=== PATIENT | female | born 1975 | race Caucasian/White ===

== ENCOUNTER → 2021-05-28 | Outpatient (CLI) | payer OTHER | LOC: MRI 10:09 | DX: M47.26 Other spondylosis with radiculopathy, lumbar region (principal); M43.16 Spondylolisthesis, lumbar region | CPT/HCPCS: 72158; A9577 ==

== ENCOUNTER → 2021-06-18 | Outpatient (CLI) | payer OTHER | LOC: KOH-I 08:30 | DX: Z01.818 Encounter for other preprocedural examination (principal); M48.061 Spinal stenosis, lumbar region without neurogenic claudication; M43.16 Spondylolisthesis, lumbar region; M51.36 Other intervertebral disc degeneration, lumbar region; M47.816 Spondylosis without myelopathy or radiculopathy, lumbar region | CPT/HCPCS: 72131 ==

== ENCOUNTER → 2021-06-26 | Outpatient (CLI) | payer OTHER ==
[2021-06-26 13:01] LABS: HEMOGLOBIN 11.3 gm/dl (12.3-15.3); RED BLOOD COUNT 4.13 M/UL (4.00-5.10); WHITE BLOOD COUNT 6.2 K/UL (4.5-11.0)
[2021-06-26 13:18] LABS: BUN/CREATININE RATIO 20 (0-10)
[2021-06-27 12:17] LABS: HBSAG SCREEN Negative (Negative); HEP A AB, IGM Negative (Negative); HEP B CORE AB, IGM Negative (Negative); HEP C VIRUS AB >11.0 (0.0-0.9)
== END ==
LOC: OPSV2 12:10 → EDSTATUS 12:30
PROVIDERS: Orthopaedic Surgery
DX: Z01.818 Encounter for other preprocedural examination (principal); M48.061 Spinal stenosis, lumbar region without neurogenic claudication; M43.16 Spondylolisthesis, lumbar region; M51.36 Other intervertebral disc degeneration, lumbar region
CPT/HCPCS: 36415; 71046; 80053; 80074; 81001; 85025; 85652; 86140; 87081; 93005

== ENCOUNTER → 2021-07-02 | Outpatient (CLI) | payer OTHER | LOC: LAB 11:18 | PROVIDERS: Orthopaedic Surgery | DX: Z86.19 Personal history of other infectious and parasitic diseases (principal) | CPT/HCPCS: 36415; 86803 ==

== ENCOUNTER → 2021-07-07 | Outpatient (CLI) | payer OTHER ==
[~2021-07-07] MED LIST: NEURONTIN800 MG PO
[2021-07-07 17:31] LABS: BUN/CREATININE RATIO 20 (0-10)
== END ==
LOC: LAB 16:07
PROVIDERS: Orthopaedic Surgery
DX: Z01.812 Encounter for preprocedural laboratory examination (principal); M48.061 Spinal stenosis, lumbar region without neurogenic claudication; M43.16 Spondylolisthesis, lumbar region
CPT/HCPCS: 36415; 80048; 86850; 86900; 86901

== ENCOUNTER 2021-07-08 05:31 | Inpatient (IN) | payer OTHER ==
[~2021-07-08] VITALS: Ht 157.5 cm; Wt 98.4 kg
[2021-07-08 16:53] LABS: HEMOGLOBIN 9.9 gm/dl (12.3-15.3); RED BLOOD COUNT 3.56 M/UL (4.00-5.10); WHITE BLOOD COUNT 16.3 K/UL (4.5-11.0)
[2021-07-08 18:47] LABS: HEMOGLOBIN 9.8 gm/dl (12.3-15.3); RED BLOOD COUNT 3.56 M/UL (4.00-5.10); WHITE BLOOD COUNT 13.9 K/UL (4.5-11.0)
[2021-07-08 19:22] LABS: BUN/CREATININE RATIO 17 (0-10)
[2021-07-09] MEDS ORDERED: NEURONTIN800 MG PO (06:02)
[2021-07-09 07:37] LABS: HEMOGLOBIN 8.3 gm/dl (12.3-15.3)
[2021-07-09 07:39] LABS: RED BLOOD COUNT 3.07 M/UL (4.00-5.10)
[2021-07-09 08:01] LABS: BUN/CREATININE RATIO 14 (0-10)
[2021-07-09 14:47] LABS: HEMOGLOBIN 8.7 gm/dl (12.3-15.3); RED BLOOD COUNT 3.12 M/UL (4.00-5.10); WHITE BLOOD COUNT 11.2 K/UL (4.5-11.0)
[2021-07-10 04:26] LABS: HEMOGLOBIN 8.8 gm/dl (12.3-15.3); RED BLOOD COUNT 3.23 M/UL (4.00-5.10); WHITE BLOOD COUNT 9.9 K/UL (4.5-11.0)
[2021-07-10 04:47] LABS: BUN/CREATININE RATIO 13 (0-10)
[2021-07-10 10:12] LABS: HBSAG SCREEN Negative (Negative); HEP A AB, IGM Negative (Negative); HEP B CORE AB, IGM Negative (Negative); HEP C VIRUS AB >11.0 (0.0-0.9)
[2021-07-11 03:23] LABS: RED BLOOD COUNT 3.27 M/UL (4.00-5.10); WHITE BLOOD COUNT 9.2 K/UL (4.5-11.0)
[2021-07-11 03:47] LABS: BUN/CREATININE RATIO 20 (0-10)
[2021-07-12 05:47] LABS: HEMOGLOBIN 8.7 gm/dl (12.3-15.3); RED BLOOD COUNT 3.14 M/UL (4.00-5.10); WHITE BLOOD COUNT 7.9 K/UL (4.5-11.0)
[2021-07-12 06:41] LABS: BUN/CREATININE RATIO 25 (0-10)
--- NOTE | 2021-07-12 15:34 | NUR ---
Patient arrived on the floor at approximately 1430. Vitals were stable, and the patient only complained of moderate pain in the lower extremities. Call light was given and the bed placed in the lowest position.
[2021-07-13 05:35] LABS: RED BLOOD COUNT 3.3 M/UL (4.00-5.10); WHITE BLOOD COUNT 9.2 K/UL (4.5-11.0)
[2021-07-13 06:50] LABS: BUN/CREATININE RATIO 25 (0-10)
[2021-07-14 05:53] LABS: HEMOGLOBIN 9.8 gm/dl (12.3-15.3); RED BLOOD COUNT 3.58 M/UL (4.00-5.10); WHITE BLOOD COUNT 8.5 K/UL (4.5-11.0)
[2021-07-14 06:14] LABS: BUN/CREATININE RATIO 24 (0-10)
--- NOTE | 2021-07-15 03:24 | NUR ---
PT STATES SHE IS HAVING CRAMPING LIKE A ZEYNEP HORSE IN HER ANTERIOR THIGHS WHICH STARTS AT THER KNEES AND GOES UP HER THIGHS, STATES PAIN MEDICATION IS NOT HELPING, STATES THIS IS A DIFFERENT PAIN THAN SHE HAD BEFORE THE PAIN PRIOR TO SURGERY, DR. MAYS NOTIFIED ORDERS FOR MAG LEVELS
[2021-07-15 03:30] LABS: HEMOGLOBIN 9.7 gm/dl (12.3-15.3); RED BLOOD COUNT 3.5 M/UL (4.00-5.10); WHITE BLOOD COUNT 10.4 K/UL (4.5-11.0)
[2021-07-15 03:57] LABS: BUN/CREATININE RATIO 20 (0-10)
[2021-07-16 05:13] LABS: BUN/CREATININE RATIO 21 (0-10)
[2021-07-16 07:15] LABS: RED BLOOD COUNT 3.63 M/UL (4.00-5.10); WHITE BLOOD COUNT 7.9 K/UL (4.5-11.0)
[2021-07-17] MEDS ORDERED: NEURONTIN800 MG PO (11:51)
[2021-07-17] MEDS ORDERED: STIMULANT LAXA1 EACH PO (11:51)
[2021-07-17] MEDS ORDERED: ROXICODONE TAB 55 MG PO (11:51)
[2021-07-17] MEDS ORDERED: OXYCONTIN20 MG PO (11:51)
[2021-07-17] MEDS ORDERED: CYCLOBENZAPRINE10 MG PO (11:51)
== END 2021-07-17 16:01 | DRG 454 ==
LOC: OR 05:31 → CCU 05:32 → OR 07:30 → CCU 19:09 → M/S 07-12 14:48
PROVIDERS: Internal Medicine; ADMIT Orthopaedic Surgery
PROC: 0SG0071 Fusion of Lumbar Vertebral Joint with Autologous Tissue Substitute, Posterior Approach, Posterior Column, Open Approach (ICD-10-PCS; 2021-07-08)
PROC: 00NY0ZZ Release Lumbar Spinal Cord, Open Approach (ICD-10-PCS; 2021-07-08)
PROC: 4A10X4G Monitoring of Central Nervous Electrical Activity, Intraoperative, External Approach (ICD-10-PCS; 2021-07-08)
PROC: 0SG10AJ Fusion of 2 or more Lumbar Vertebral Joints with Interbody Fusion Device, Posterior Approach, Anterior Column, Open Approach (ICD-10-PCS; principal; 2021-07-08 07:30)
DX: M48.061 Spinal stenosis, lumbar region without neurogenic claudication (principal); D62 Acute posthemorrhagic anemia; M43.16 Spondylolisthesis, lumbar region; Z20.822 Contact with and (suspected) exposure to COVID-19; M51.36 Other intervertebral disc degeneration, lumbar region; B19.20 Unspecified viral hepatitis C without hepatic coma; M54.16 Radiculopathy, lumbar region; E87.6 Hypokalemia; D72.829 Elevated white blood cell count, unspecified; F19.10 Other psychoactive substance abuse, uncomplicated; E66.01 Morbid (severe) obesity due to excess calories; Z98.51 Tubal ligation status; Z90.49 Acquired absence of other specified parts of digestive tract; Z56.0 Unemployment, unspecified; Z82.49 Family history of ischemic heart disease and other diseases of the circulatory system; Z68.37 Body mass index [BMI] 37.0-37.9, adult; Z71.3 Dietary counseling and surveillance; Z87.01 Personal history of pneumonia (recurrent)
CPT/HCPCS: 36415; 72100; 72110; 76000; 80048; 80053; 80074; 80307; 83036; 83735; 84100; 84132; 84439; 84443; 85025; 85027; 85610; 85730; 97116-GP-CQ; 97161; 97166; 97530; 97535; C1713; C1762; J0690; J1170; J1650; J1885; J2001; J2250; J2405; J2550; J2704; J3010; J3370; J7030; J7040; J7120; P9045